=== PATIENT | male | born 1985 | race Caucasian/White ===

== ENCOUNTER 2017-10-27 06:32 | Emergency (ER) | payer MEDICAID ==
[2017-10-27] MEDS ORDERED: Albuterol/Ipratropium NEB.SOL* Albuterol 2.5 MG/Ipratropium 0.5 MG 3 ML INH ONE ×2 (06:51→07:27)
--- NOTE | 2017-10-27 08:04 | RAD ---
INDICATION: Cough and wheeze COMPARISON: None TECHNIQUE: PA and lateral views of the chest were obtained. FINDINGS: The heart and mediastinum are normal in size and contour. The lungs are grossly clear. There is no evidence of large pleural effusion. Visualized bones are normal for the patient's age. There is no radiographic evidence of free air beneath the diaphragm IMPRESSION: No radiographic evidence of acute cardiopulmonary disease.
--- NOTE | 2017-10-27 08:09 | ED ---
Respiratory - HPI Summary HPI Summary: Patient is a 32-year-old male who presents emergency department for cough and shortness of breath 2-3 weeks. She denies history of symptoms of fever or chills, abdominal pain, vomiting, diarrhea. Admits to close tussive vomiting and chest pain with coughing. Patient denies past medical history. States he' s used an inhaler in the past but has not been diagnosed with asthma. Does not smoke. Symptoms are mild in severity. No current modifying factors. - History of Current Complaint Chief Complaint: EDRespiratoryDistress Stated Complaint: COUGH Time Seen by Provider: 10/27/17 06:39 Hx Obtained From: Patient Pain Intensity: 6 Sputum Amount: None - Allergy/Home Medications Allergies/Adverse Reactions: Allergies Allergy/AdvReac Type Severity Reaction Status Date / Time No Known Allergies Allergy Verified 11/01/13 21:27 PMH/Surg Hx/FS Hx/Imm Hx Previously Healthy: Yes - Surgical History Surgery Procedure, Year, and Place: ORAL SURGERY Infectious Disease History: No Infectious Disease History: Denies: Traveled Outside the in Last 30 Days - Social History Alcohol Use: Occasionally Substance Use Type: Reports: None Smoking Status (MU): Never Smoked Tobacco Review of Systems Constitutional: Negative Eyes: Negative Positive: Sore Throat Positive: Chest Pain - with coughing Positive: Shortness Of Breath, Cough Gastrointestinal: Negative Neurological: Negative All Other Systems Reviewed And Are Negative: Yes Physical Exam Triage Information Reviewed: Yes Vital Signs On Initial Exam: Initial Vitals Temp Pulse Resp BP Pulse Ox 97.9 F 94 16 151/91 97 10/27/17 06:35 10/27/17 06:35 10/27/17 06:35 10/27/17 06:35 10/27/17 06:35 Vital Signs Reviewed: Yes Appearance: Positive: Well-Appearing - Pt. sitting up in bed in NAD. Audible wheezing noted. Family present., Well-Nourished Skin: Positive: Warm, Dry Head/Face: Positive: Normal Head/Face Inspection Eyes: Positive: Normal Neck: Positive: Supple Respiratory/Lung Sounds: Positive: Other - Diminished breath sounds in bilateral bases. Expiratory wheeze in bilateral upper lungs. No cervical muscle use or tripoding. Cardiovascular: Positive: Normal, RRR Neurological: Positive: Normal, CN Intact II-III Psychiatric: Positive: Affect/Mood Appropriate Diagnostics - Vital Signs Vital Signs Temp Pulse Resp BP Pulse Ox 10/27/17 07:07 79 11 130/97 100 10/27/17 07:06 78 12 97 10/27/17 07:00 97 16 97 10/27/17 06:52 102 15 96 10/27/17 06:37 85 22 151/91 97 10/27/17 06:35 97.9 F 94 16 151/91 97 - Laboratory Lab Statement: Any lab studies that have been ordered have been reviewed, and results considered in the medical decision making process. Disposition - Course Course Of Treatment: Patient presenting to the ER for ongoing cough and wheeze. He is afebrile with stable vital signs. Oxygenation saturation is 97% on room air which is normal. We'll obtain chest x-ray and give DuoNeb and reassess. Reevaluation wheezing and upper lungs has cleared and there is now mild wheezing in the bases with much better air movement. Will give 1 more DuoNeb treatment. Chest x-ray is negative for infiltrate or acute findings, reading per radiology. Results were discussed with patient. He states he is feeling much better at this time. Prescription for prednisone and albuterol sent to pharmacy. He currently does not have a PCP. Advised to call the [facility] on Saturday for a close follow-up appointment. We'll return to the ER symptoms change or worsen. Patient understands and agrees with plan. - Differential Dx - Cardiopulmonary Differential Diagnoses - Cardiopulmonary: Acute Dyspnea, Airway Obstruction, Hypoxia, Influenza, Lower Resp Infection - Diagnoses Provider Diagnoses: Bronchospasm with bronchitis, acute Discharge - Sign-Out/Discharge Documenting (check all that apply): Patient Departure - Discharge Plan Condition: Good Disposition: HOME Prescriptions: Albuterol HFA INHALER* [Ventolin HFA Inhaler*] 1 puff INH Q4H PRN #1 mdi PRN Reason: Wheezing predniSONE TAB* [Deltasone 20 MG TAB*] 40 mg PO DAILY 7 Days #14 tab Patient Education Materials: Acute Bronchitis (ED), Bronchospasm (ED) Referrals: [facility] [Outside] No Primary Care Phys,NOPCP [Primary Care Provider] - Additional Instructions: Call the [facility] on Saturday to schedule a follow up appointment Take medications as directed Return to ER if symptoms change or worsen - Billing Disposition and Condition Condition: GOOD Disposition: Home
[2017-10-27 08:23] VITALS: BP 132/103
== END 2017-10-27 08:23 | disposition home or self-care (01) ==
LOC: ED 06:32
DX: J20.9 Acute bronchitis, unspecified (principal)
CPT/HCPCS: 71046; 99283; A9270-GY